=== PATIENT | female | born 1980 | race Hispanic/Latino ===

== ENCOUNTER 2021-06-23 06:06 | Day surgery (SDC) | payer OTHER ==
[2021-06-22 17:13] LABS: BASOPHILS % (AUTO) 0.2 % (0.0-5.0); EOSINOPHILS % (AUTO) 0.3 % (0.0-8.0); HEMATOCRIT 34.4 % (36-48); LYMPHOCYTES % (AUTO) 23.7 % (21.0-51.0); MEAN CORPUSCULAR HEMOGLOBIN 30.1 pg (27.0-33.0); MEAN CORPUSCULAR HGB CONC 34.3 g/dL (32.0-36.0); MEAN CORPUSCULAR VOLUME 87.8 fL (79-99); MONOCYTES % (AUTO) 8.1 % (3.0-13.0); NEUTROPHILS % (AUTO) 67.4 % (40.0-77.0); PLATELET COUNT (AUTO) 263 K/uL (130-400); RED BLOOD CELL COUNT(AUTO) 3.92 MIL/uL (4.00-5.50); RED CELL DISTRIBUTION WIDTH 12.9 % (11.0-15.5); WHITE BLOOD COUNT (AUTO) 6.2 K/uL (4.8-10.8)
[2021-06-22 17:23] VITALS: BP 116/68
[~2021-06-23] VITALS: Ht 157.5 cm; Wt 71.5 kg
[~2021-06-23 06:06] MED LIST: CETI-89 PO
[2021-06-23 06:30] VITALS: BP 112/60
[2021-06-23] MEDS ORDERED: CEFAZOLIN SODIUM 1 GM VIAL ONE (06:47)
[2021-06-23] MEDS ORDERED: MIDAZOLAM HCL 1 MG/ML 2ML VIAL ONE (07:13)
[2021-06-23] MEDS ORDERED: LIDOCAINE PF 100MG/5ML (2%) SYRINGE 5ML ONE (07:19)
[2021-06-23] MEDS ORDERED: METHYLERGONOVINE MALEATE 0.2 MG/1 ML ML IM PRN (07:20)
[2021-06-23] MEDS ORDERED: PROPOFOL 10 MG/ML 20ML VIAL IV ONE (07:20)
[2021-06-23] MEDS ORDERED: FENTANYL CITRATE PF 50 MCG/1 ML 2ML VIAL ONE (07:23)
[2021-06-23] MEDS ORDERED: OXYTOCIN 10 USP UNITS/ML ONE (07:25)
[2021-06-23] MEDS ORDERED: MISOPROSTOL 200 MCG TABLET PR PRN (07:30)
[2021-06-23] MEDS ORDERED: DEXAMETHASONE SOD PHOSPHATE 10MG/ML 1ML VIAL ONE (07:31)
[2021-06-23] MEDS ORDERED: ONDANSETRON 4MG INJ ONE (07:31)
[2021-06-23] MEDS ORDERED: PHENYLEPHRINE HCL 10 MG/ML 1ML VIAL IV ONE (07:41)
[2021-06-23] MEDS ORDERED: CEFAZOLIN SODIUM 1 GM VIAL IVP ONE (08:00)
[2021-06-23] MEDS ORDERED: OXYTOCIN-LR 20 UNITS/1000 ML 1,000 ML IV ONE (08:01)
[2021-06-23] MEDS ORDERED: CALDOLOR 800MG+NS 250ML 250 ML IV ONE (08:13)
[2021-06-23] MEDS ORDERED: CALDOLOR 800MG+NS 250ML 250 ML IV SCH (08:30)
[2021-06-23] MEDS ORDERED: OXYTOCIN-LR 20 UNITS/1000 ML 1,000 ML IV SCH (08:30)
[2021-06-23 09:45] VITALS: BP 123/77
[2021-06-23 10:00] VITALS: BP 123/69
[2021-06-23 10:15] VITALS: BP 132/61
[2021-06-23] MEDS: LACTATED RINGERS 1000ML 1,000 ML IV SCH ×2 (10:17→10:29)
[2021-06-23 10:30] VITALS: BP 122/73
== END 2021-06-23 10:40 | disposition home or self-care (01) ==
LOC: DAH 06:06
PROVIDERS: ATTEND Obstetrics & Gynecology
DX: O02.1 Missed abortion (principal); Z20.822 Contact with and (suspected) exposure to COVID-19; E78.5 Hyperlipidemia, unspecified; Z88.8 Allergy status to other drugs, medicaments and biological substances
CPT/HCPCS: 36415 ×2; 59820; 84702; 84703; 85025; 86850; 86900; 86901; 87635; A4215; A4216; A4221; A4222; A4223 ×2; A4335 ×2; A4510; A4600; A4663; C9803; J0690 ×2; J1100; J1741; J2001; J2210; J2250; J2370; J2405; J2590 ×2; J2704; J3010; J7120 ×2

== ENCOUNTER 2021-08-10 06:19 | Day surgery (SDC) | payer OTHER ==
[2021-08-09 15:40] LABS: BASOPHILS % (AUTO) 0.3 % (0.0-5.0); EOSINOPHILS % (AUTO) 1.2 % (0.0-8.0); HEMATOCRIT 39.6 % (36-48); LYMPHOCYTES % (AUTO) 35.4 % (21.0-51.0); MEAN CORPUSCULAR HEMOGLOBIN 26.4 pg (27.0-33.0); MEAN CORPUSCULAR HGB CONC 32.1 g/dL (32.0-36.0); MEAN CORPUSCULAR VOLUME 82.3 fL (79-99); MONOCYTES % (AUTO) 3.7 % (3.0-13.0); NEUTROPHILS % (AUTO) 59.2 % (40.0-77.0); PLATELET COUNT (AUTO) 340 K/uL (130-400); RED BLOOD CELL COUNT(AUTO) 4.81 MIL/uL (4.00-5.50); RED CELL DISTRIBUTION WIDTH 12.2 % (11.0-15.5)
[2021-08-09 15:51] VITALS: BP 114/71
[2021-08-10] VITALS (19 sets, daily range): BP systolic 106–130; BP diastolic 59–80
[~2021-08-10] VITALS: Ht 157.5 cm; Wt 72.9 kg
[2021-08-10] MEDS: CEFAZOLIN SODIUM 1 GM VIAL IVP SCH ×2 (06:00→07:30)
[~2021-08-10 06:19] MED LIST changes: -CETI-89 PO; +GUAI1TBM19 PO; +LACTATED RINGERS 1000ML 1,000 ML IV SCH
[2021-08-10] MEDS ORDERED: VITA1TAB22 PO (06:47)
[2021-08-10] MEDS ORDERED: MAGN250T35 PO (06:47)
[2021-08-10] MEDS ORDERED: ZINC50TA15 PO (06:47)
[2021-08-10] MEDS ORDERED: TUMERIC PO (06:47)
[2021-08-10] MEDS ORDERED: CHOL-34 PO (06:47)
[2021-08-10] MEDS ORDERED: ASCO100031 PO (06:47)
[2021-08-10] MEDS ORDERED: MEPERIDINE-PF 25 MG/ML SYG ONE (08:26)
== END 2021-08-10 10:30 | disposition home or self-care (01) ==
LOC: DAH 06:19
PROVIDERS: ATTEND Obstetrics & Gynecology
DX: O01.0 Classical hydatidiform mole (principal); Z20.822 Contact with and (suspected) exposure to COVID-19; Z98.890 Other specified postprocedural states
CPT/HCPCS: 36415 ×2; 59870; 84703 ×2; 85025; 86850; 86900; 86901; 87635; 88305; 88341; 88342; A6260; C9803; J0690; J1100; J2001; J2175; J2250; J2405; J2704; J3010; J7120 ×2